=== PATIENT | female | born 1955 | race Caucasian/White ===

== ENCOUNTER → 2019-01-27 06:51 | Day surgery (SDC) | payer OTHER ==
[~2019-01-27 06:51] MED LIST: Acetaminophen TAB* 325 MG ONE; Buffered Lidocaine 1% SYRIN* 1 ML/SYRINGE INTRADERM ONE; Bupivacaine 0.25% SDV PF* 10 ML VIAL INJ ONE; Clindamycin 900 MG IVPREMIX(* 900 MG/50 ML SDV IV ONE; Dexamethasone IV* 4 MG/ML 1 ML (4 MG) ONE; EPHEDrine (Pressors)* 50 MG/ML VIAL ONE; HYDROmorphone INJ1* 1 MG/ML SYRINGE IV PRN; HYDROmorphone INJ1* 1 MG/ML SYRINGE ONE; Heparin VIAL(*) 5000 UNITS/ML VIAL (FIVE THOUSAND) ONE; Lactated Ringers 1000 ML Bag* 1,000 ML IV SCH; Lidocain 1% EPI 1:100,000 * 30 ML MDV ONE; Lidocaine 2% PF * 5 ML VIAL ONE; Metoclopramide IV* 5 MG/ML 2 ML VIAL IV PRN; Metoclopramide IV* 5 MG/ML 2 ML VIAL ONE; Midazolam* 1 MG/ML 2 ML VIAL (2 MG) ONE; Naloxone* 0.4 MG/ML 1 ML VIAL IV PRN; Ondansetron INJ* 2 MG/ML VIAL ONE; PROCHLORPERAZINE INJ 5 MG/ML 2 ML VIAL IV PRN; PROCHLORPERAZINE INJ 5 MG/ML 2 ML VIAL ONE; Propofol* 10 MG/ML 20 ML BTL ONE; Scopolamine 1.5 mg* PATCH ONE; fentaNYL* 50 MCG/ML 2 ML VIAL (100 MCG VIAL) ONE
[2019-01-27 16:04] VITALS: BP 150/82
== END | disposition home or self-care (01) ==
LOC: OR 06:51
PROVIDERS: ATTEND Plastic Surgery
DX: N62 Hypertrophy of breast (principal); I10 Essential (primary) hypertension; F41.8 Other specified anxiety disorders; M54.2 Cervicalgia; M54.9 Dorsalgia, unspecified
CPT/HCPCS: 88305; A9270-GY; A9272-GY; J0780; J1100; J1170; J1644; J2250; J2405; J2704; J2765; J3010; J3490